=== PATIENT | female | born 1970 | race Caucasian/White ===

== ENCOUNTER 2017-10-07 16:12 | Emergency (ER) | payer SELFPAY ==
[2017-10-07 17:29] LABS: Absolute Lymphocytes (CBC) 1.2 K/uL (0.7-4.9); Absolute Monocytes 0.6 K/uL (0.1-1.3); Basophils % 0.7 % (0-1.3); Eosinophils % 1.2 % (0-4.4); Hematocrit 40.1 % (36.0-45.0); Lymphocytes % 11.2 % (15.3-44.8); MCH 30.3 pg (27.0-35.0); MCV 92.6 fL (80-100); MPV 7.8 fL (7.6-11.3); Monocytes % 5.2 % (3.3-12.3); RBC Red Blood Cell Count 4.33 M/uL (3.86-4.86)
[2017-10-07 17:35] LABS: Potassium 3.4 mEq/L (3.6-5.0)
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
[2017-10-07] MEDS ORDERED: NA CHLORIDE 0.9% 1,000 ML ONE (17:54)
[2017-10-07] MEDS ORDERED: HYDROCODONE/APAP 10/325 TAB ONE (18:01)
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
[2017-10-07 18:20] LABS: Urine Blood NEGATIVE (NEG); Urine Glucose NEGATIVE (NEG); Urine Protein NEGATIVE (NEG); Urine Specific Gravity 1.025 (1.005-1.030)
--- NOTE | 2017-10-09 10:33 | EKG ---
Test Date: 2017-10-07 Test Time: 17:07:41 Excellence Specialist: ALFREDO MEASUREMENT RESULTS: Intervals: Rate: 97 RI: 174 QRSD: 86 QT: 368 QTc: 467 Conifer: P: 70 RI: 174 QRS: 60 T: 81 INTERPRETIVE STATEMENTS: Normal sinus rhythm Moderate voltage criteria for LVH, may be normal variant Borderline ECG Compared to ECG 11/11/2009 01:38:14 Sinus tachycardia no longer present Electronically Signed On 10-09-17 10:27:45 CDT by River Coffey
== END 2017-10-07 19:07 | disposition home or self-care (01) ==
LOC: ER 16:12
DX: S20.219A Contusion of unspecified front wall of thorax, initial encounter (principal); S30.1XXA Contusion of abdominal wall, initial encounter; S27.329A Contusion of lung, unspecified, initial encounter; V49.59XA Passenger injured in collision with other motor vehicles in traffic accident, initial encounter; F17.210 Nicotine dependence, cigarettes, uncomplicated
CPT/HCPCS: 36415; 70450; 71260; 72125; 74177; 80048; 81003; 85025; 86850; 86900; 86901; 93005; 96360; 99285; J7030